=== PATIENT | male | born 1995 | race Caucasian/White ===

== ENCOUNTER 2021-01-12 17:12 | Emergency (ER) | payer OTHER ==
[~2021-01-12] VITALS: Ht 180.3 cm; Wt 147.4 kg
[2021-01-12] MEDS ORDERED: IBUPROFEN 600 MG TABLET PO ONE (17:45)
[2021-01-12] MEDS ORDERED: IBUP800T54 PO (18:06)
[2021-01-12] MEDS ORDERED: IBUPROFEN 600 MG TABLET ONE (18:12)
[2021-01-12 18:50] VITALS: BP 115/81
== END 2021-01-12 18:15 | disposition home or self-care (01) ==
LOC: ER 17:15
DX: S62.346A Nondisplaced fracture of base of fifth metacarpal bone, right hand, initial encounter for closed fracture (principal); W22.01XA Walked into wall, initial encounter; Y93.89 Activity, other specified; Y92.89 Other specified places as the place of occurrence of the external cause; E66.9 Obesity, unspecified; Z68.42 Body mass index [BMI] 45.0-49.9, adult
CPT/HCPCS: 73130; A4663